=== PATIENT | male | born 1995 | race Caucasian/White ===

== ENCOUNTER → 2018-05-17 | Emergency (ER) | END | disposition home or self-care (01) ==

== ENCOUNTER 2018-06-16 23:33 | Emergency (ER) | END 2018-06-17 07:35 | disposition home or self-care (01) ==

== ENCOUNTER 2018-10-21 12:29 | Emergency (ER) | payer OTHER ==
[~2018-10-21] VITALS: Ht 180.3 cm; Wt 77.3 kg
[~2018-10-21 12:29] MED LIST: IBUP-1542 PO
[2018-10-21 12:46] VITALS: Ht 180.3 cm; Wt 77.3 kg
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
[2018-10-21] MEDS ORDERED: IBUP-1542 PO (14:27)
[2018-10-21] MEDS ORDERED: IBUPROFEN 600 MG TAB PO ONE (14:30)
[2018-10-21 14:55] VITALS: BP 130/78; PULSE 85; RESP 18
== END 2018-10-21 15:00 ==
LOC: E/R 12:29
DX: M54.2 Cervicalgia (principal); F17.210 Nicotine dependence, cigarettes, uncomplicated
CPT/HCPCS: 70450; 72125

== ENCOUNTER 2019-01-27 04:56 | Emergency (ER) | payer OTHER ==
[~2019-01-27] VITALS: Ht 177.8 cm; Wt 73.0 kg
[2019-01-27 04:58] VITALS: BP 119/66; PULSE 115; RESP 19; Ht 177.8 cm; Wt 73.0 kg
[2019-01-27] MEDS ORDERED: NAPR-985 PO (06:18)
[2019-01-27] MEDS ORDERED: SULF1TAB31 PO (06:18)
[2019-01-27] MEDS ORDERED: CEPH-443 PO (06:18)
[2019-01-27] MEDS ORDERED: LIDOCAINE 1% (MPF) 5 ML VIAL INJ ONE (06:30)
[2019-01-27] MEDS ORDERED: CEFTRIAXONE 1 GM INJ IM ONE (06:30)
--- NOTE | 2019-01-27 06:47 | ERD ---
ER Documentation Chief Complaint Chief Complaint RIGHT HAND SWELLING; POSS BUG BITE; DENIES DRUG USE X1DAY HPI 23-year-old male presenting with pain to his right hand with swelling. He sta janel this is been going on for the last 2 days. He denies fevers. He is right- hand dominant. He states he believes he was bitten by a bug. He has a history of drug use however states he has not used in the last few days. He denies the area of inflammation from being due to drug use. He denies any chest pain or shortness of breath. He does have some pain radiating up his arm. Denies other medical problems. NKDA. Surgical history denies. Social history denies ROS All systems reviewed and are negative except as per history of present illness. Medications Home Meds Active Scripts Naproxen* (Naprosyn*) 500 Mg Tablet, 500 MG PO BID PRN for PAIN AND/OR INFLAMMATION, #30 TAB Prov:HERNÁN REGAN PA-C 01/27/19 Sulfamethoxazole/Trimethoprim* (Bactrim Ds* Tablet) 1 Each Tablet, 1 TAB PO BID, #14 TAB Prov:HERNÁN REGAN PA-C 01/27/19 Cephalexin* (Keflex*) 500 Mg Capsule, 500 MG PO QID for 7 Days, CAP Prov:HERNÁN REGAN PA-C 01/27/19 Ibuprofen* (Motrin*) 600 Mg Tab, 600 MG PO Q6H PRN for PAIN AND OR ELEVATED TEMP, #20 TAB Prov:DIPIKA REAL MD 10/21/18 Allergies Allergies: Coded Allergies: No Known Allergy (Unverified , 10/21/18) PMhx/Soc History of Surgery: No Anesthesia Reaction: No Hx Neurological Disorder: No Hx Respiratory Disorders: Yes (Asthma) Hx Cardiac Disorders: No Hx Psychiatric Problems: No Hx Miscellaneous Medical Probl: No Hx Alcohol Use: Yes (occasional) Hx Substance Use: Yes (WEED) Hx Tobacco Use: Yes Smoking Status: Current every day smoker FmHx Family History: No diabetes, No coronary disease, No other Physical Exam Vitals Vital Signs Date Temp Pulse Resp B/P (MAP) Pulse Ox O2 O2 Flow FiO2 Time Delivery Rate 01/27/19 98.5 115 19 119/66 100 04:58 (83) Physical Exam GENERAL: The patient is well-appearing, well-nourished, in no acute distress CHEST: Clear to auscultation bilaterally. There are no rales, wheezes or rhonchi. HEART: Regular rate and rhythm. No murmurs, clicks, rubs or gallops EXTREMITIES: Equal pulses bilaterally. There is no peripheral clubbing, cyanosis or edema. No focal swelling or erythema. Full range of motion. NEUROLOGIC: Alert and oriented. Cranial nerves II through XII intact. Motor strength in all 4 extremities with 5 out of 5 strength. Sensation grossly intact. Normal speech and gait. SKIN: Erythema noted to the right hand with swelling. No lymphatic streaking. Compartments soft and pulses intact. Cap refill less than 2 seconds. There is a excoriated abrasion noted to the right fifth digit on the dorsal aspect. No areas of fluctuance noted and no pustules. Results 24 hrs Current Medications Medications Dose Sig/Kirby Start Time Status Last (Trade) Ordered Route PRN Stop Time Admin Dose Reason Admin Ceftriaxone 1 gm ONCE ONCE 01/27/19 DC 01/27/19 Sodium IM 06:30 06:33 (Rocephin) 01/27/19 06:31 Lidocaine 5 ml ONCE ONCE 01/27/19 DC 01/27/19 (Xylocaine INJ 06:30 06:33 1% (Mpf)) 01/27/19 06:31 Procedures/MDM ER course: Rocephin given in ED. MDM: 23-year-old male presenting with findings of cellulitis to the right hand. Patient does not have lymphatic streaking and I have low suspicion for lymphatic infection at this time. Patient is afebrile. There is no site of drainage. I have low suspicion for flexor tenosynovitis. I have low suspicion for necrotizing fasciitis. Patient is discharged with oral antibiotics and re commended to apply warm compresses to the affected area. Patient is told to return in 2 days for wound check. I do not feel there is indication for admission at this time as patient has not trialed oral antibiotics. Patient is discharged with strict ER precautions. All questions answered at discharge Departure Diagnosis: Primary Impression: Cellulitis Condition: Stable Patient Instructions: Cellulitis Referrals: COMM[facility]ITY CLIN[facility] YOU HAVE RECEIVED A MEDICAL SCREENING EXAM AND THE RESULTS INDICATE THAT YOU DO NOT HAVE A CONDITION THAT REQUIRES URGENT TREATMENT IN THE EMERGENCY DEPARTMENT. FURTHER EVALUATION AND TREATMENT OF YOUR CONDITION CAN WAIT UNTIL YOU ARE SEEN IN YOUR DOCTORS OFFICE WITHIN THE NEXT 1-2 DAYS. IT IS YOUR RESPONSIBILITY TO MAKE AN APPOINTMENT FOR FOLOW-UP CARE. IF YOU HAVE A PRIMARY DOCTOR --you should call your primary doctor and schedule an appointment IF YOU DO NOT HAVE A PRIMARY DOCTOR YOU CAN CALL OUR PHYSICIAN REFERRAL HOTLINE AT IF YOU CAN NOT AFFORD TO SEE A PHYSICIAN YOU CAN CHOSE FROM THE FOLLOWING [facility] [address] [facility] [address] [facility] [facility] [address] [facility] [address] [facility] [address] [facility]. [address] Additional Instructions: FOLLOW UP WITH YOUR PRIMARY CARE PHYSICIAN TOMORROW.Return to this facility if you are not improving as expected. HERNÁN REGAN PA-C Jan 27, 2019 06:47
== END 2019-01-27 06:46 | disposition home or self-care (01) ==
LOC: FTE 04:56
DX: L03.113 Cellulitis of right upper limb (principal); J45.909 Unspecified asthma, uncomplicated; F17.210 Nicotine dependence, cigarettes, uncomplicated
CPT/HCPCS: 96372; J0696; Z7502; Z7610

== ENCOUNTER 2019-04-05 10:16 | Emergency (ER) | payer SELFPAY ==
[~2019-04-05] VITALS: Ht 180.3 cm; Wt 75.4 kg
[~2019-04-05 10:16] MED LIST changes: +CEPH-443 PO; +NAPR-985 PO; +SULF1TAB31 PO
[2019-04-05 10:21] VITALS: BP 137/80; PULSE 117; RESP 16; Ht 180.3 cm; Wt 75.4 kg
== END 2019-04-05 10:40 | disposition left against medical advice (07) ==
LOC: FTE 10:16
DX: Z53.21 Procedure and treatment not carried out due to patient leaving prior to being seen by health care provider (principal)